=== PATIENT | female | born 1950 | race Caucasian/White ===

== ENCOUNTER 2016-03-27 10:18 | Emergency (ER) | payer MEDICARE ==
[2016-03-27] MEDS ORDERED: Aspirin Low Dose CHEW TAB* 81 MG PO ONE (12:25)
[2016-03-27 12:59] LABS: Hematocrit 43 % (35-47); Hemoglobin 14.3 g/dl (12.0-16.0); Mean Corpuscular HGB Conc 34 g/dl (31-36); Mean Corpuscular Hemoglobin 27 pg (27-31); Mean Corpuscular Volume 81 fL (80-97); Mean Platelet Volume 8 um3 (7.4-10.4); Red Blood Count 5.26 10^6/ul (4.0-5.4); Red Cell Distribution Width 14 % (10.5-15); White Blood Count 10.3 10^3/ul (3.5-10.8)
--- NOTE | 2016-03-27 13:09 | RAD ---
INDICATION: Chest pain COMPARISON: None TECHNIQUE: An AP portable view obtained at 1235 hours is submitted. FINDINGS: Bones/Soft Tissues: There are no acute bony findings. Cardiomediastinal: The cardiomediastinal silhouette is normal. Lungs: There are no infiltrates. Pleura: There are no pleural effusions. Other: None IMPRESSION: NO ACTIVE DISEASE.
[2016-03-27 13:13] LABS: BUN/Creatinine Ratio 15.4 (8-20); Calcium 10.2 mg/dL (8.6-10.3); EGFR African American 79.8 (>60); Globulin 3.4 g/dL (2-4); Potassium 3.6 mmol/L (3.5-5.0); Total Bilirubin 0.4 mg/dL (0.2-1.0); Total Protein 7.4 g/dL (6.4-8.9)
[2016-03-27 14:51] VITALS: BP 118/69
--- NOTE | 2016-03-27 15:01 | ED ---
Pepe Ortega Benjamin, scribed for Khurram Zavala MD on 03/27/16 at 1104 . HPI Chest Pain - HPI Summary HPI Summary: 65yo female c/o sudden sharp mid sternal chest pain while in hospital for her husbands surgery. No SOB, nausea, or raditing pain anywhere. Pt was a former smoker. Pt had occasional CP in the past. Hx includes HTN, thyroid problems, high cholesterol. FHx of DM and CAD. - History of Current Complaint Chief Complaint: EDChestWallPain Time Seen by Provider: 03/27/16 10:55 Hx Obtained From: Patient Onset/Duration: Started Minutes Ago, Resolved Timing: Constant Initial Severity: Moderate Current Severity: None Pain Intensity: 0 Pain Scale Used: 0-10 Numeric Chest Pain Location: Mid Sternal Chest Pain Radiates: No Character: Sharp/Stabbing - sharp Aggravating Factor(s): Nothing Alleviating Factor(s): Nothing Associated Signs and Symptoms: Positive: Chest Pain. Negative: Shortness of Breath, Nausea - Allergy/Home Medications Allergies/Adverse Reactions: Allergies Allergy/AdvReac Type Severity Reaction Status Date / Time No Known Allergies Allergy Verified 03/27/16 12:49 Home Medications: Home Medications Atorvastatin* [Lipitor*] 20 mg PO DAILY 03/27/16 [History Confirmed 03/27/16] Azelastine 0.15% NASAL(NF) [Astepro 0.15% NASAL (NF)] 1 spray BOTH NARES BID 01/01 [History Confirmed 03/27/16] Azithromyxin RAY (NF) [Z-Ray (Zithromax)] 250 mg PO DAILY 03/27/16 [History Confirmed 03/27/16] Guaifenesin-Codeine [Cheratussin AC] 5 ml PO TID PRN MDD 15 ml 03/27/16 [ History Confirmed 03/27/16] Hydrochlorothiazide TAB* [Hydrodiuril TAB*] 25 mg PO DAILY 03/27/16 [History Confirmed 03/27/16] Levothyroxine TAB* [Synthroid TAB*] 50 mcg PO DAILY 03/27/16 [History Confirmed 03/27/16] Omeprazole CAP* [Prilosec CAP* 20 MG] 20 mg PO DAILY 03/27/16 [History Confirmed 03/27/16] Propranolol LA CAP* [Inderal LA CAP*] 120 mg PO BID 03/27/16 [History Confirmed 03/27/16] PMH/Surg Hx/FS Hx/Imm Hx Endocrine/Hematology History: Reports: Hx Thyroid Disease Cardiovascular History: Reports: Hx Hypercholesterolemia, Hx Hypertension Infectious Disease History: No Infectious Disease History: Denies: Traveled Outside the [place] in Last 30 Days - Family History Known Family History: Positive: Cardiac Disease, Diabetes - Social History Occupation: Employed Full-time Lives: With Family Alcohol Use: Rare Substance Use Type: Reports: None Smoking Status (MU): Former Smoker Review of Systems Constitutional: Negative Eyes: Negative ENT: Negative Positive: Chest Pain Respiratory: Negative Negative: Shortness Of Breath Gastrointestinal: Negative Genitourinary: Negative Musculoskeletal: Negative Skin: Negative Neurological: Negative Psychological: Normal All Other Systems Reviewed And Are Negative: Yes Physical Exam Triage Information Reviewed: Yes Vital Signs On Initial Exam: Initial Vitals Resp BP 25 135/71 03/27/16 10:30 03/27/16 10:30 Vital Signs Reviewed: Yes Appearance: Positive: Well-Appearing, No Pain Distress, Well-Nourished Skin: Positive: Warm, Skin Color Reflects Adequate Perfusion, Dry Head/Face: Positive: Normal Head/Face Inspection Eyes: Positive: Normal ENT: Positive: Normal ENT inspection Neck: Positive: Supple, Nontender Cardiovascular: Positive: RRR Abdomen Description: Positive: Nontender, Soft Bowel Sounds: Positive: Present Musculoskeletal: Positive: Normal Neurological: Positive: Normal, Sensory/Motor Intact, Alert, Oriented to Person Place, Time, CN Intact II-III Psychiatric: Positive: Affect/Mood Appropriate Diagnostics - Vital Signs Vital Signs Temp Pulse Resp BP Pulse Ox 03/27/16 10:33 98.0 F 67 18 135/71 98 03/27/16 10:30 25 135/71 - Laboratory Lab Results: Lab Results 03/27/16 03/27/16 03/27/16 Range/Units 10:50 10:50 14:05 WBC 10.3 (3.5-10.8) 10^3/ul RBC 5.26 (4.0-5.4) 10^6/ul Hgb 14.3 (12.0-16.0) g/dl Hct 43 (35-47) % MCV 81 (80-97) fL MCH 27 (27-31) pg MCHC 34 (31-36) g/dl RDW 14 (10.5-15) % Plt Count 286 (150-450) 10^3/ul MPV 8 (7.4-10.4) um3 Neut % (Auto) 56.9 (38-83) % Lymph % (Auto) 30.9 (25-47) % [place] % (Auto) 7.5 (1-9) % Eos % (Auto) 3.4 (0-6) % Baso % (Auto) 1.3 (0-2) % Absolute Neuts (auto) 5.9 (1.5-7.7) 10^3/ul Absolute Lymphs (auto) 3.2 (1.0-4.8) 10^3/ul Absolute Monos (auto) 0.8 (0-0.8) 10^3/ul Absolute Eos (auto) 0.4 (0-0.6) 10^3/ul Absolute Basos (auto) 0.1 (0-0.2) 10^3/ul Absolute Nucleated RBC 0.02 10^3/ul Nucleated RBC % 0.2 Sodium 137 (133-145) mmol/L Potassium 3.6 (3.5-5.0) mmol/L Chloride 104 (101-111) mmol/L Carbon Dioxide 28 (22-32) mmol/L Anion Gap 5 (2-11) mmol/L BUN 14 (6-24) mg/dL Creatinine 0.91 (0.51-0.95) mg/dL Est GFR ( Amer) 79.8 (>60) Est GFR (Non-Af Amer) 62.0 (>60) BUN/Creatinine Ratio 15.4 (8-20) Glucose 103 H (70-100) mg/dL Calcium 10.2 (8.6-10.3) mg/dL Total Bilirubin 0.40 (0.2-1.0) mg/dL AST 18 (13-39) U/L ALT 21 (7-52) U/L Alkaline Phosphatase 117 H (34-104) U/L Troponin I 0.00 0.00 (<0.04) ng/mL Total Protein 7.4 (6.4-8.9) g/dL Albumin 4.0 (3.2-5.2) g/dL Globulin 3.4 (2-4) g/dL Albumin/Globulin Ratio 1.2 (1-3) Result Diagrams: 03/27/16 10:50 03/27/16 10:50 Lab Statement: Any lab studies that have been ordered have been reviewed, and results considered in the medical decision making process. - Radiology CXR Xray Interpretation: No Acute Changes Radiology Interpretation Completed By: Radiologist - EKG 1030 Cardiac Rate: NL EKG Rhythm: Sinus Rhythm ST Segment: Non-Specific Chest Pain Course/Dx - Course Course Of Treatment: Ms. Zamarripa presented with an atypical cp that was transient and has not recurred. He W/U including two troponins is negative and I recommended F/U with her PMD and return if the pain does. - Diagnoses Provider Diagnoses: Chest pain Discharge - Discharge Plan Condition: Stable Disposition: HOME Patient Education Materials: Chest Pain (ED) Additional Instructions: Please follow up with your Primary Care Physician in a few days. The documentation as recorded by the Pepe washburn Benjamin accurately reflects the service I personally performed and the decisions made by , Khurram Zavala MD.
== END 2016-03-27 14:52 | disposition home or self-care (01) ==
LOC: ED 10:18
DX: R07.9 Chest pain, unspecified (principal)
CPT/HCPCS: 36415; 71010; 80053; 84484; 85025; 93005; 99283; A9270-GY